=== PATIENT | male | born 1970 | race Caucasian/White ===

== ENCOUNTER 2018-06-03 20:57 | Emergency (ER) | payer BC ==
[~2018-06-03] VITALS: Ht 180.3 cm; Wt 83.9 kg
[2018-06-04] MEDS ORDERED: ULTRAM50 MG PO (02:39)
[2018-06-04] MEDS ORDERED: DIPHENOXYLATE-1 EACH PO (02:39)
[2018-06-04] MEDS ORDERED: CIPRO500 MG PO (02:39)
[2018-06-04] MEDS ORDERED: INTESTINEX680 M1 PO (02:39)
[2018-06-04] MEDS ORDERED: CELEBREX100 MG PO (02:39)
[2018-06-04] MEDS ORDERED: METRONIDAZOLE500 MG PO (02:39)
[2018-06-04] MEDS ORDERED: LEVSIN/SL0.125 MG PO (02:39)
[2018-06-04] MEDS ORDERED: PEPCID AC20 MG PO (02:39)
== END 2018-06-04 03:08 | disposition home or self-care (01) ==
LOC: ER 20:57
DX: A08.8 Other specified intestinal infections (principal); R10.31 Right lower quadrant pain